=== PATIENT | female | born 1945 | race Caucasian/White ===

== ENCOUNTER 2017-01-20 14:18 | Emergency (ER) | payer MEDICARE ==
[2017-01-20 14:51] LABS: Hemoglobin 12.5 g/dL (12.0-16.0); Mean Corpuscular Hemoglobin 28.4 pg (27.0-31.0); Mean Corpuscular Volume 87.4 fL (81.0-99.0); Red Blood Cell (RBC) Count 4.41 mill/uL (4.20-5.40); White Blood Cell (WBC) Count 9.6 thou/uL (4.8-10.8)
[2017-01-20 14:52] LABS: %Lymphocytes 9.9 % (21.0-51.0); %Monocytes 4.9 % (0.0-10.0); %Neutrophils 84.4 % (42.0-75.0); Mean Corpuscular HGB CONC 32.5 g/dL (32.0-36.0); Mean Platelet Volume 4.5 fL (7.4-10.4); Platelet Count 507 thou/uL (130-400); RBC Distribution Width 12.2 % (11.5-14.5)
[2017-01-20 14:53] LABS: #Basophils 0.1 thou/uL (0.0-0.2); #Monocytes 0.5 thou/uL (0.11-0.59); #Neutrophils 8.1 thou/uL (1.40-6.50); %Basophils 0.6 % (0.0-1.0); %Eosinophils 0.1 % (0.0-10.0)
[2017-01-20 14:54] LABS: Manual Diff?? YES
[2017-01-20 14:57] LABS: #Lymphocytes 0.9 thou/uL (1.20-3.40)
[2017-01-20 15:54] LABS: Anion Gap 14 mmol/L (10-20); BUN (Urea Nitrogen) 9 mg/dL (9.8-20.1); Carbon Dioxide 29 mmol/L (23-31); Chloride 98 mmol/L (98-107); Estimated GFR-MDRD 78; Potassium 3.8 mmol/L (3.5-5.1); Sodium 138 mmol/L (136-145)
[2017-01-20 15:55] LABS: ALT (SGPT) 14 U/L (8-55); AST (SGOT) 23 U/L (5-34); Albumin 3.8 g/dL (3.4-4.8); Alkaline Phosphatase 82 U/L (40-150); Bilirubin, Total 0.4 mg/dL (0.2-1.2); Calcium 9.4 mg/dL (7.8-10.44); Globulin 3.6 g/dL (2.4-3.5); Glucose 117 mg/dL (83-110); Protein, Total 7.4 g/dL (5.8-8.1)
[2017-01-20 15:56] LABS: Magnesium 2.3 mg/dL (1.6-2.6)
[2017-01-20 16:32] LABS: Bilirubin Negative (Negative); Blood, Urine Negative (Negative); Clarity Clear (Clear); Glucose, Urine (Dipstick) Negative (Negative); Leukocyte Negative (Negative); Nitrite Negative (Negative); Protein, Urine (Dipstick) Negative (Neg-Trace); Specific Gravity, Urine 1.015 (1.005-1.030)
[2017-01-20 19:31] LABS: Calc. Creatinine Clearance 0 mL/min (70-130)
--- NOTE | 2017-01-20 22:53 | RAD ---
CHEST TWO VIEWS 01/20/17 No prior films are available for comparison. There is a 4.7 cm opacity in the right middle lobe that is somewhat mass-like. A pulmonary mass is suspected. There may be a second area at the inferior aspect of the left hilum, but this is less cer tain. The upper lobes are clear. The lungs are hyperexpanded but no effusions were seen. The bones a re osteoporotic and there are a few mild vertebral compressions in the mid thoracic region. IMPRESSION: Right middle lobe mass. Possible left lung lesion as well, but less certain. See CT abdomen and pelv is report to follow. POS: HOME
--- NOTE | 2017-01-20 23:37 | CT ---
CT ABDOMEN AND PELVIS WITH CONTRAST 01/20/[address] of the abdomen and pelvis was performed for evaluation of weight loss, abdominal distentio n and lower extremity edema. Axial slices were acquired, then coronal and sagittal reconstructions w ere done. A lobulated mass is present in the right middle lobe of the lung on one of the top slices. It measur es about 4.3 cm in size. The lungs were otherwise clear. No effusions were noted. The major finding in the study is a very large cystic lesion that occupies most of the abdomen and p pravin. There are multiple septated elements and soft tissue components within this large cystic lesi on. One solid element is located peripherally along the right flank and measures 7.8 x 3.2 cm. As on e descends into the more inferior portions of the cystic lesion in the pelvis, There are more septat ions and internal solid elements. The findings suggest a malignant process. 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 While it is not certain where the cystic area arises from, it probably does arise from one of the ovaries. It causes marked compression and displacement of the patient's bowel to the sides of the abdomen. A hiatal hernia is present. The liver and spleen were unremarkable. No pancreatic lesion was appreci ated. No adrenal masses were seen. There is a 4.9 cm simple cyst involving the right kidney. Right h ydronephrosis is present secondary to compression from the cystic mass. The aorta shows very extensi ve arteriosclerotic change but no aneurysm. CT of the pelvis was remarkable for the cystic complex mass. No free fluid was seen in the pelvis. C alcified fibroids are suggested in the uterus. There is no distension of bowel or sign of bowel obst ruction. Degenerative changes are prominent in the lumbar spine with bulging disc centrally at L4-L5 . IMPRESSION: 1. Very large cystic abdominal mass that occupies most of the abdomen and pelvis. It is mostly cystic with internal septations and solid components. 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 2. 4.3 cm mass in the right middle lobe of the lung, presumably metastatic. 3. Hiatal hernia. 4. Right hydronephrosis. 5. Other findings as listed above. Findings discussed with Dr. Sutherland immediately following the scan at 1625. POS: HOME
== END 2017-01-20 17:14 | disposition home or self-care (01) ==
LOC: BURERS 14:18
DX: C56.1 Malignant neoplasm of right ovary (principal); F17.210 Nicotine dependence, cigarettes, uncomplicated
CPT/HCPCS: 71020; 74177; 80053; 81003; 83735; 83880; 84443; 85025; 93005